=== PATIENT | female | born 1985 | race Two or more races ===

== ENCOUNTER 2019-06-01 09:23 | Day surgery (SDC) | payer OTHER ==
[~2019-06-01] VITALS: Ht 165.1 cm; Wt 39.1 kg
[2019-06-01] MEDS ORDERED: ONDANSETRON 2MG/ML, 2ML ONE ×2 (09:50→16:16)
[2019-06-01] MEDS ORDERED: MORPHINE SULFATE 4 MG/ML, 1ML ONE ×2 (09:50→10:46)
[2019-06-01] MEDS: MORPHINE SULFATE 4 MG/ML, 1ML IVPush PRN ×2 (09:58→11:09)
[2019-06-01] MEDS ORDERED: SODIUM CHLORIDE FLUSH 10ML SYR IVF ONE (10:00)
[2019-06-01] MEDS ORDERED: ONDANSETRON 2MG/ML, 2ML IVPush ONE (10:00)
--- NOTE | 2019-06-01 10:03 | NUR ---
PT WITH C/O EPIGASTRIC PAIN THAT HAS NOW MOVED TO HER FLANK AREA BILATERALLY. PT DENIES URINARY SYMPTOMS, +VOMITTING THIS AM APPROX 0300. PT DENIES CP, SOB, TRAUMA. PT TO BP, CONT PULSE OX. PIV INITIATED, PT MEDICATED PER MAR
[2019-06-01 10:13] LABS: BASOPHILS # (AUTO) 0.05 x10^3/uL (0-0.1); BASOPHILS % (AUTO) 1 % (0-1); EOSINOPHILS % (AUTO) 2 % (1-7); LYMPHOCYTES # (AUTO) 1.82 x10^3/uL (1-3.4); LYMPHOCYTES % (AUTO) 20 % (22-44); MD NO; MEAN CORPUSCULAR HEMOGLOBIN 29.8 pg (27.0-34.8); MEAN CORPUSCULAR HGB CONC 33.8 g/dL (32.4-35.8); MEAN CORPUSCULAR VOLUME 88.2 fL (80-100); MEAN PLATELET VOLUME 7.3 fL (7.4-10.4); MONOCYTES # (AUTO) 0.42 x10^3/uL (0.2-0.8); MONOCYTES % (AUTO) 5 % (2-9); NEUTROPHILS # (AUTO) 6.56 x10^3/uL (1.8-6.8); NEUTROPHILS % (AUTO) 73 % (42-75); PLATELET COUNT 392 x10^3/uL (130-400); RED BLOOD COUNT 4.51 x10^6/uL (3.82-5.3); RED CELL DISTRIBUTION WIDTH 13.2 % (9.6-15.2)
[2019-06-01 10:25] LABS: ALANINE AMINOTRANSFERASE 34 U/L (12-78); ALBUMIN 3.6 g/dL (3.4-5.0); ANION GAP 8 mmol/L (5-15); CALCIUM 8.5 mg/dL (8.5-10.1); CHLORIDE 104 mmol/L (98-107); CREATININE 0.75 mg/dL (0.55-1.02)
[2019-06-01 10:29] LABS: ALKALINE PHOSPHATASE 87 U/L (45-117); BILIRUBIN,TOTAL 0.3 mg/dL (0.2-1.0); TOTAL PROTEIN 7.7 g/dL (6.4-8.2)
--- NOTE | 2019-06-01 10:45 | NUR ---
PT TO US AT THIS TIME
[2019-06-01] MEDS ORDERED: SODIUM CHLORIDE 0.9% 1,000 ML IV ONE ×2 (11:38→11:43)
[2019-06-01] MEDS ORDERED: HYDROmorphone 1 MG/ML, 1ML INJ ONE (11:54)
[2019-06-01] MEDS ORDERED: SODIUM CHLORIDE FLUSH 10ML SYR IVF PRN (12:00)
[2019-06-01] MEDS ORDERED: HYDROmorphone 1 MG/ML, 1ML INJ IVPush PRN (12:00)
[2019-06-01] MEDS ORDERED: HYDROmorphone 2 MG/ML, 1ML IVPush PRN ×2 (12:00→16:30)
[2019-06-01] MEDS ORDERED: ONDANSETRON 2MG/ML, 2ML IVPush PRN (12:00)
[2019-06-01] MEDS ORDERED: CEFOTETAN PMX 1GM/50ML 50 ML IV ONE (12:00)
--- NOTE | 2019-06-01 12:14 | NUR ---
REPORT GIVEN TO RECIEVING RYAN GOMEZ, AWAITING TRANSPORT
[2019-06-01 14:34] VITALS: BP 165/96
[2019-06-01] MEDS ORDERED: CEFOTETAN PMX 2GM/50ML 50 ML ONE (16:16)
[2019-06-01] MEDS ORDERED: LIDOCAINE-MPF 2% ,5ML ONE (16:16)
[2019-06-01] MEDS ORDERED: SUCCINYLCHOLINE 20 MG/ML, 10ML ONE (16:16)
[2019-06-01] MEDS ORDERED: SODIUM CHLORIDE 0.9% PF 10ML ONE (16:16)
[2019-06-01] MEDS ORDERED: DEXAMETHASONE 4 MG/ML, 1ML ONE ×2 (16:16)
[2019-06-01] MEDS ORDERED: KETOROLAC 30 MG/1 ML ONE (16:16)
[2019-06-01] MEDS ORDERED: PROPOFOL 10 MG/ML, 20ML ONE (16:16)
[2019-06-01] MEDS ORDERED: ROCURONIUM 10MG/ML,5ML ONE (16:16)
[2019-06-01] MEDS ORDERED: FENTANYL PF 100 MCG/2ML ONE ×3 (16:17→19:09)
[2019-06-01] MEDS ORDERED: MIDAZOLAM 1 MG/ML, 2ML ONE (16:17)
[2019-06-01] MEDS ORDERED: GLYCOPYRROLATE 0.2MG/1ML, 5ML ONE (16:21)
[2019-06-01] MEDS ORDERED: ACETAMINOPHEN 650 MG/20.3 ML UDC PO PRN (16:30)
[2019-06-01] MEDS ORDERED: hydrALAzine 20 MG/ML, 1ML IV PRN (16:30)
[2019-06-01] MEDS ORDERED: LABETALOL 5MG/ML, 20ML IV PRN (16:30)
[2019-06-01] MEDS ORDERED: PROMETHAZINE 25 MG/ML, 1ML IV PRN (16:30)
[2019-06-01] MEDS ORDERED: EPHEDRINE 50 MG/ML, 1ML IVPush PRN (16:30)
[2019-06-01] MEDS ORDERED: ONDANSETRON 2MG/ML, 2ML IV PRN (16:30)
[2019-06-01] MEDS ORDERED: BUPIVACAINE/PF 0.5% ONE (17:43)
[2019-06-01] MEDS ORDERED: EPINEPHRINE 1 MG/ML, 1ML ONE (17:43)
[2019-06-01] MEDS ORDERED: NEOSTIGMINE 1 MG/ML, 10ML ONE (17:56)
[2019-06-01] MEDS ORDERED: OXYcodone 5 MG/5 ML ORAL.SOL UDC ONE ×2 (18:59→19:19)
[2019-06-01] MEDS ORDERED: MEPERIDINE/PF 25MG/ML,1ML ONE ×2 (18:59→19:19)
[2019-06-01] MEDS ORDERED: OXYcodone 5 MG/5 ML ORAL.SOL UDC PO PRN (19:00)
[2019-06-01] MEDS: OXYcodone 5 MG/5 ML ORAL.SOL UDC PO PRN ×2 (19:00→19:20)
[2019-06-01] MEDS: MEPERIDINE/PF 25MG/ML,1ML IVPush PRN ×2 (19:02→19:22)
[2019-06-01] MEDS: FENTANYL PF 100 MCG/2ML IV PRN ×3 (19:10→19:20)
[2019-06-01 19:45] VITALS: BP 121/75
[2019-06-01] MEDS ORDERED: OXYC5TAB2 PO (21:42)
[2019-06-01] MEDS ORDERED: FLU VACC QS2019-20 36MOS UP/PF 0.5 ML IM-VACC ONE (22:00)
== END 2019-06-01 23:05 | disposition home or self-care (01) ==
LOC: EDBD 10:17 → ED 10:17 → EDIP 12:27 → UNDOADMIN 12:27 → EDIP 13:01 → 4NE 13:01 → EDSTATUS 18:16 → OUT 18:40 → UNDODISIN 23:39
PROVIDERS: ATTEND Emergency Medicine
DX: K80.12 Calculus of gallbladder with acute and chronic cholecystitis without obstruction (principal); Z23 Encounter for immunization; E66.01 Morbid (severe) obesity due to excess calories
CPT/HCPCS: 36415; 47562; 76700; 80053; 83690; 84703; 85025; 88304; 90471; 90686; 93005; J0171; J0330; J1100; J1170; J1885; J2175; J2250; J2270; J2405; J2704; J2710; J3010; J3490; J7030; G0378